=== PATIENT | male | born 2000 | race Caucasian/White ===

== ENCOUNTER 2024-01-20 18:30 | Emergency (ER) | payer BC, SELFPAY ==
[2024-01-20 18:31] VITALS: BP 117/82; PULSE 93; RESP 15; TEMP 36.6; O2SAT 100
--- NOTE | 2024-01-20 20:53 | ED_ITS ---
HPI - Skin/Abscess/Foreign Bdy General Chief complaint: Skin/Abscess/Foreign Body Stated complaint: stuff going on down low. Time Seen by Provider: 01/20/24 20:17 Source: patient Mode of arrival: ambulatory Limitations: no limitations History of Present Illness HPI narrative: This is a 23-year-old male that presents to the emergency department for a rash to the left groin. Reports the area is painful and itchy. Has history of similar rash in the past. He is currently at [facility] and that they were not able to prescribe him any powder for this. Related Data Allergies Allergy/AdvReac Type Severity Reaction Status Date / Time bupropion AdvReac Hallucinati Verified 01/20/24 18:35 ng Review of Systems Review of Systems: CONSTITUTIONAL: Denies fever SKIN: Reports rash and itching. All systems reviewed & are unremarkable except as noted in HPI and below PMFSH Past Medical History Medical History (Updated 01/20/24 @ 21:01 by Naty Sahu PA-C) History of depression Social History Social History (Updated 01/20/24 @ 21:01 by Naty Sahu PA-C) Substance use: never Exam Narrative: GENERAL: Well-appearing, well-nourished, and in no acute distress. HEAD: Normocephalic, atraumatic. EYES: EOMI. EXTREMITIES: Normal range of motion. No edema. SKIN: Warm, dry. Red, moist, papular rash to the left groin NEURO: No focal deficits. Alert and oriented x3. PSYCH: Normal mood and affect Course Course Emergency Course: Patient agrees with plan of care Vital Signs Vital signs: Vital Signs Temperature 97.9 F 01/20/24 18:31 Pulse Rate 93 01/20/24 18:31 Respiratory Rate 15 01/20/24 18:31 Blood Pressure 117/82 01/20/24 18:31 Pulse Oximetry 100 01/20/24 18:31 Oxygen Delivery Room Air 01/20/24 18:31 Temperature 97.9 F 01/20/24 18:31 Pulse Rate 93 01/20/24 18:31 Respiratory Rate 15 01/20/24 18:31 Blood Pressure 117/82 01/20/24 18:31 Pulse Oximetry 100 01/20/24 18:31 Oxygen Delivery Room Air 01/20/24 18:31 MDM - Skin/Abscess/Foreign Bdy MDM Narrative Medical decision making narrative: Patient presents to the emergency department for rash. This is consistent with tinea cruris. Patient will be started on miconazole powder. Given warnings to return to the ER Differential Diagnosis Differential diagnosis: Likely dermatophytosis, cellulitis, eczema and other (tinea cruris) Critical Care Time Critical Care Time Critical Care Time: No Discharge Plan Discharge Clinical Impression: Tinea cruris Patient Disposition: Other Condition: Stable Instructions: Skin Yeast Infection (ED) Additional Instructions: Return if symptoms worsen or concerns: any increase in redness, swelling, pain or fever over 101 Apply miconazole powder as prescribed Prescriptions: New miconazole nitrate 2 % powder 1 applic topical BID 14 Days Qty: 85 0RF Follow-up/Referrals: PHYSICIAN,CAREER DEVELOPMENT COORDINATOR/TEACHER [Primary Care Provider] -
--- NOTE | 2024-01-20 21:20 | PC.NURSE ---
2119-CALLED TO [facility] AND SPOKE WITH BROOKLYNN ([phone]). STATES SOMEONE WILL BE HERE SHORTLY TO PICK HIM UP. PATIENT TO WAITING ROOM TO AWAIT FOR RIDE.
== END 2024-01-20 21:18 | disposition home or self-care (01) ==
LOC: ANHED 21:20
PROVIDERS: Emergency Provider Physician Assistant
DX: B35.6 Tinea cruris (principal)
CPT/HCPCS: 99283